=== PATIENT | male | born 1975 | race Hispanic/Latino ===

== ENCOUNTER 2019-12-27 19:40 | Emergency (ER) | payer BC, SELFPAY ==
--- NOTE | 2019-12-27 20:47 | RAD ---
RIGHT ANKLE THREE VIEW: 12/27/19 HISTORY: Injury at work. COMPARISON: None. FINDINGS: There is a small anterior tibial plafond spur. There is a small sen of bone on the expected locatio n of the deltoid ligament. Small nondisplaced fracture medial process of the talus. Old injury of the distal fibular tip. IMPRESSION: 1. Age indeterminate deltoid ligament injury. There is only small volume adjacent edema. 2. Lateral ankle sprain without displaced lateral ankle fracture. POS: HOME
[2019-12-27] MEDS ORDERED: Ibuprofen 800 MG TAB ONE (20:52)
== END 2019-12-27 21:09 | disposition home or self-care (01) ==
LOC: ERS 19:40
DX: S93.401A Sprain of unspecified ligament of right ankle, initial encounter (principal); E11.9 Type 2 diabetes mellitus without complications; F17.200 Nicotine dependence, unspecified, uncomplicated; Z79.84 Long term (current) use of oral hypoglycemic drugs; X50.1XXA Overexertion from prolonged static or awkward postures, initial encounter; Y99.0 Civilian activity done for income or pay

== ENCOUNTER 2021-04-09 13:13 | Outpatient (CLI) | payer OTHER | END 2021-04-09 13:14 | disposition home or self-care (01) | LOC: BICMRI 13:13 | PROVIDERS: ATTEND Family Medicine | DX: S49.92XD Unspecified injury of left shoulder and upper arm, subsequent encounter (principal) ==